=== PATIENT | male | born 1940 | race Caucasian/White ===

== ENCOUNTER 2018-12-26 05:40 | Day surgery (SDC) | payer MEDICARE ==
[2018-12-24 10:37] LABS: BASOPHILS % (AUTO) 1.8 % (0.0-5.0); EOSINOPHILS % (AUTO) 1.9 % (0.0-8.0); LYMPHOCYTES % (AUTO) 24.5 % (21.0-51.0); MEAN CORPUSCULAR HEMOGLOBIN 31.6 pg (27.0-33.0); MEAN CORPUSCULAR HGB CONC 34.9 g/dL (32.0-36.0); MEAN CORPUSCULAR VOLUME 90.4 fL (79-99); MONOCYTES % (AUTO) 6.2 % (3.0-13.0); NEUTROPHILS % (AUTO) 65.6 % (40.0-77.0); NUCLEATED RED BLOOD CELLS 0.1 % (0.0-0.19); PLATELET COUNT (AUTO) 163 K/uL (130-400); RED BLOOD CELL COUNT(AUTO) 4.53 MIL/uL (4.50-6.20); RED CELL DISTRIBUTION WIDTH 13.5 % (11.0-15.5); WHITE BLOOD COUNT (AUTO) 6.2 K/uL (4.8-10.8)
[2018-12-24 10:43] VITALS: BP 162/80
[2018-12-24 10:47] LABS: CREATININE 1.1 mg/dL (0.5-1.5); POTASSIUM 3.7 mmol/L (3.5-5.1)
[2018-12-24 10:49] LABS: INR 0.99 (0.85-1.15); PARTIAL THROMBOPLASTIN TIME 26.2 SEC (26.3-35.5); PROTHROMBIN TIME 10.4 SEC (9.6-11.6)
[2018-12-24 11:35] LABS: APPEARANCE,URINE Clear (CLEAR); BILIRUBIN,URINE Negative (NEGATIVE); COLOR,URINE Yellow (YELLOW); GLUCOSE, URINE (UA) Negative (NEGATIVE); KETONES,URINE Negative (NEGATIVE); LEUKOCYTE ESTERASE ,URINE Negative (NEGATIVE); NITRATE,URINE Negative (NEGATIVE); OCCULT BLOOD,URINE Negative (NEGATIVE); PH,URINE 7.5 (5.0-8.0); PROTEIN,URINE Negative (NEGATIVE)
[2018-12-26] VITALS (12 sets, daily range): BP systolic 100–181; BP diastolic 47–86
[~2018-12-26] VITALS: Ht 175.3 cm; Wt 129.4 kg
[~2018-12-26 05:40] MED LIST: ALLO300T2 PO; CARB-38 PO; ESCI10TA54 PO; GABA-529 PO; LOSA1TAB37 PO; METF-444 PO; METO25TA6 PO; MIRA50TA PO; SIMV40TA5 PO; TERA5CAP4 PO; VITAMIN D 3 PO
[2018-12-26] MEDS ORDERED: SODIUM CHLORIDE 0.9% 1000ML 1,000 ML IV ONE (06:14)
[2018-12-26] MEDS ORDERED: SODIUM BICARB 50MEQ 50ML VIAL ONE (09:32)
[2018-12-26] MEDS ORDERED: NITROGLYCERIN 5 MG/ML 10 ML VIAL IV ONE (09:32)
[2018-12-26] MEDS ORDERED: HEPARIN SODIUM 1000UNIT/ML 10ML VIAL ONE (09:32)
[2018-12-26] MEDS ORDERED: LIDOCAINE HCL 1% 20 ML VIAL ONE (09:32)
[2018-12-26] MEDS ORDERED: IOHEXOL-350 50ML VIAL IV ONE ×2 (09:33→10:45)
--- NOTE | 2018-12-26 09:40 | NUR ---
TO [employer] PT TAKEN TO [employer] VIA BED BY SAMAN RAMÍREZ. PT STABLE.
[2018-12-26] MEDS ORDERED: IOHEXOL-350 75 ML VIAL IV ONE (10:11)
[2018-12-26] MEDS ORDERED: ADENOSINE 90MG/30ML VIAL IV ONE ×2 (10:38→10:41)
[2018-12-26] MEDS ORDERED: HYDRALAZINE HCL 20 MG/ML VIAL ONE (11:02)
[2018-12-26] MEDS ORDERED: ACETAMINOPHEN-CODEINE 300/30MG TAB PO PRN ×2 (11:15)
[2018-12-26] MEDS ORDERED: HYDRALAZINE HCL 20 MG/ML VIAL IM PRN (11:15)
[2018-12-26] MEDS ORDERED: HYDRALAZINE HCL 20 MG/ML VIAL IV PRN (11:30)
--- NOTE | 2018-12-26 12:20 | NUR ---
RX PRESCRIPTION OF TOPROL 25 MG PO Q 12HRS AND RANEXA 500 MG PO Q12 HRS CALLED IN TO [facility] TEL #[phone] PER 'S REQUEST. SPOKE TO DB, PHARMACIST.
--- NOTE | 2018-12-26 12:30 | NUR ---
DIET PT TOLERATED DIET WELL, ASSISTED IN FEEDING PT.
--- NOTE | 2018-12-26 15:15 | NUR ---
TEACH DISCHARGE INSTRUCTIONS GIVEN TO AND PT. DEMONSTRATED TO ON HOW TO MONITOR PT'S CATH SITE FOR BLEEDING/HEMATOMA, APPLY DIRECT PRESSURE AND CALL 911. VERBALIZED UNDERSTANDING.
--- NOTE | 2018-12-26 15:35 | NUR ---
REPORT REPORT GIVEN TO JOSE MANUEL PARRA RN. PT STABLE. NO COMPLAINTS MADE. CATH SITE TO RIGHT GROIN REMAINS SOFT. DRESSING DRY AND INTACT, NO OOZING NO HEMATOMA NOTED.
== END 2018-12-26 17:40 | disposition home or self-care (01) ==
LOC: DAH 05:40
PROVIDERS: ATTEND Internal Medicine Cardiovascular Disease
DX: I25.118 Atherosclerotic heart disease of native coronary artery with other forms of angina pectoris (principal); I11.0 Hypertensive heart disease with heart failure; I50.32 Chronic diastolic (congestive) heart failure; E78.5 Hyperlipidemia, unspecified; E11.9 Type 2 diabetes mellitus without complications; G20 Parkinson's disease; Z85.46 Personal history of malignant neoplasm of prostate
CPT/HCPCS: 36415 ×2; 71045; 80048; 81003; 82948 ×2; 85025; 85347; 85610; 85730; 93005; 93458; 93571; C1760; C1769; C1887; C1894; J0153 ×2; J0360; J1644 ×2; J3490 ×2; J7030; Q9967 ×3